=== PATIENT | female | born 1935 | race Caucasian/White ===

== ENCOUNTER 2019-02-15 07:36 | Observation (INO) | payer MEDICARE, BC ==
[2019-02-15] MEDS ORDERED: Sodium Chloride 0.9% 1,000 ML IV ONE (07:47)
[2019-02-15] MEDS ORDERED: Sodium Chloride 0.9% 10 ML Syringe FLUSH PRN (07:47)
--- NOTE | 2019-02-15 07:49 | EDM.PDOC ---
ED HPI GENERAL MEDICAL PROBLEM - General Chief Complaint: Genitourinary Problem Stated Complaint: UTI Time Seen by Provider: 02/15/19 07:45 Source of Information: Reports: Patient, Family, Old Records, RN, RN Notes Reviewed History Limitations: Reports: No Limitations - History of Present Illness INITIAL COMMENTS - FREE TEXT/NARRATIVE: Patient is brought to the ED at [facility] from the assisted living facility for concerns of a possible UTI. According to the patient's daughter, the patient "just has not been herself for the past couple of days." Patient apparently had significant urinary incontinence this morning. She has some lower pelvic pressure. No fevers or chills. Patient complains of a headache. No chest pain. Mild SOB. Has not been eating or drinking very well the past couple of days. No N/V/D. Patient has a significant history for UTI's in the past. Onset: Today Left Head Pain Score (Numeric/FACES): 4 - Related Data Allergies Allergy/AdvReac Type Severity Reaction Status Date / Time acetaminophen Allergy Other Verified 02/15/19 07:52 [From Darvocet-N] diltiazem [From Cardizem] Allergy Other Verified 02/15/19 07:52 lorazepam Allergy Other Verified 02/15/19 07:52 methyldopa Allergy Other Verified 02/15/19 07:53 propoxyphene Allergy Other Verified 02/15/19 07:52 [From Darvocet-N] Home Meds: Home Meds Acetaminophen [Acetaminophen ER] 650 mg PO Q6H PRN 02/15/19 [History] Albuterol/Ipratropium [DuoNeb 3.0-0.5 MG/3 ML] 3 ml IH Q4H PRN 02/15/19 [History ] Alum Hydrox/Mag Hydrox/Simeth [Maalox Advanced] 30 ml PO Q2H PRN 02/15/19 [ History] Apixaban [Eliquis] 2.5 mg PO BID 02/15/19 [History] Carvedilol [Coreg] 6.25 mg PO BID 02/15/19 [History] Dextran 70/Hypromellose [Artificial Tears] 1 each OP Q2H PRN 02/15/19 [History] Dextran 70/Hypromellose [Artificial Tears] 1 each OP QID 02/15/19 [History] Dextromethorphan/guaiFENesin [Robitussin DM] 10 ml PO Q4H PRN 02/15/19 [History] Digoxin 125 mcg PO DAILY 02/15/19 [History] Docusate Sodium [Colace] 100 mg PO BID 02/15/19 [History] Doxazosin [Doxazosin Mesylate] 2 mg PO DAILY 02/15/19 [History] Fluticasone Propionate [Flonase] 2 spray NS DAILY 02/15/19 [History] Furosemide 40 mg PO DAILY 02/15/19 [History] Magnesium Oxide [Magnesium] 400 mg PO DAILY 02/15/19 [History] Potassium Chloride 10 meq PO BID 02/15/19 [History] QUEtiapine [SEROquel] 25 mg PO BEDTIME PRN 02/15/19 [History] Simvastatin 10 mg PO BEDTIME 02/15/19 [History] SitaGLIPtin [Januvia] 100 mg PO DAILY 02/15/19 [History] ED ROS GENERAL - Review of Systems Review Of Systems: See Below Constitutional: Denies: Fever, Chills Respiratory: Reports: Shortness of Breath. Denies: Cough Cardiovascular: Denies: Chest Pain, Palpitations GI/Abdominal: Denies: Abdominal Pain, Nausea, Vomiting : Reports: Incontinence, Pain Skin: Reports: No Symptoms Neurological: Reports: Headache ED EXAM, RENAL/ - Physical Exam Exam: See Below Exam Limited By: No Limitations General Appearance: Alert, No Apparent Distress, Thin Respiratory/Chest: No Respiratory Distress, Lungs Clear, Decreased Breath Sounds Cardiovascular: Normal Peripheral Pulses, Regular Rate, Rhythm GI/Abdominal: Soft, Non-Tender, Abnormal Bowel Sounds (Hypoactive) (Female) Exam: Deferred Neurological: Alert, Oriented, Slow to Respond Skin Exam: Warm, Dry, Intact, Normal Color Course - Vital Signs Last Recorded V/S: Last Vital Signs Temp 37.0 C 02/15/19 07:40 Pulse 64 02/15/19 09:35 Resp 12 02/15/19 09:35 BP 139/58 L 02/15/19 09:35 Pulse Ox 97 02/15/19 07:40 - Orders/Labs/Meds Orders: Active Orders 24 hr Category Date Time Status Head wo Cont [CT] Stat Exams 02/15/19 09:04 Taken CULTURE URINE [RM] Stat Lab 02/15/19 09:04 Received Sodium Chloride 0.9% [Saline Flush] Med 02/15/19 07:47 Active 10 ml FLUSH ASDIRECTED PRN Peripheral IV Insertion Adult [OM.PC] Routine Oth 02/15/19 07:47 Ordered Medication Orders Sodium Chloride (Saline Flush) 10 ml FLUSH ASDIRECTED PRN PRN Reason: Keep Vein Open Labs: Laboratory Tests 02/15/19 02/15/19 02/15/19 Range/Units 08:04 08:04 09:04 WBC 8.6 (4.0-10.0) x10^3/uL RBC 3.21 L (4.00-5.50) x10^6/uL Hgb 8.3 L (12.0-16.0) g/dL Hct 28.7 L (33.0-47.0) % MCV 89.4 (78.0-93.0) fL MCH 25.9 L (26.0-32.0) pg MCHC 28.9 L (32.0-36.0) g/dL RDW Coeff of Brendan 17.5 H (10.0-15.0) % Plt Count 457 H (130-400) x10^3/uL Neut % (Auto) 72.0 (50.0-80.0) % Lymph % (Auto) 13.4 L (25.0-50.0) % [place] % (Auto) 10.7 (2.0-11.0) % Eos % (Auto) 3.8 (0.0-4.0) % Baso % (Auto) 0.1 L (0.2-1.2) % Sodium 141 (136-145) mmol/L Potassium 4.0 (3.5-5.1) mmol/L Chloride 103 (98-107) mmol/L Carbon Dioxide 28 (21-32) mmol/L Anion Gap 14.0 (10-20) mmol/L BUN 32 H (7-18) mg/dL Creatinine 1.0 (0.55-1.02) mg/dL Est Cr Clr Drug Dosing 37.48 mL/min Estimated GFR (MDRD) 53 Glucose 112 H (74-106) mg/dL Calcium 9.4 (8.5-10.1) mg/dL Corrected Calcium 10.60 H (8.5-10.1) mg/dL Total Bilirubin 0.5 (0.2-1.0) mg/dL AST 16 (15-37) U/L ALT 26 (14-59) U/L Alkaline Phosphatase 182 H (46-116) U/L Total Protein 7.0 (6.4-8.2) g/dL Albumin 2.5 L (3.4-5.0) g/dL Globulin 4.5 Albumin/Globulin Ratio 0.56 Urine Color Yellow (YELLOW) Urine Appearance Cloudy H (CLEAR) Urine pH 7.0 (5.0-8.0) Ur Specific [place] 1.010 Urine Protein Negative (NEGATIVE) mg/dL Urine Glucose (UA) Negative (NEGATIVE) mg/dL Urine Ketones Negative (NEGATIVE) mg/dL Urine Occult Blood Small H (NEGATIVE) Urine Nitrite Negative (NEGATIVE) Urine Bilirubin Negative (NEGATIVE) Urine Urobilinogen 0.2 (0.2) EU/dL Ur Leukocyte Esterase Moderate H (NEGATIVE) Urine RBC 0-5 (NOT SEEN) /HPF Urine WBC 30-40 H (NOT SEEN) /HPF Ur Squamous Epith Cells Moderate H (NEGATIVE) /HPF Urine Bacteria Many H (NEGATIVE) /HPF Urine Mucus Rare H (NEGATIVE) /LPF Meds: Medications Generic Name Dose Route Start Last Admin Trade Name Freq PRN Reason Stop Dose Admin Sodium Chloride 10 ml 02/15/19 07:47 Saline Flush FLUSH ASDIRECTED PRN Keep Vein Open Discontinued Medications Generic Name Dose Route Start Last Admin Trade Name Freq PRN Reason Stop Dose Admin Sodium Chloride 1,000 mls @ 999 mls/hr 02/15/19 07:47 02/15/19 08:07 Normal Saline IV 02/15/19 08:47 999 mls/hr ONETIME ONE Administration Morphine Sulfate 2 mg 02/15/19 09:04 02/15/19 09:21 Morphine IVPUSH 02/15/19 09:05 2 mg ONETIME ONE Administration - Radiology Interpretation Free Text/Narrative:: CXR: No pneumonia or edema CT Head: No plain evidence of acute intracranial process See scanned report in EMR CT Results Date: 02/15/19 CT Results Time: 09:34 Departure - Departure Time of Disposition: 10:11 Disposition: Refer to Observation Condition: Fair Clinical Impression: Weakness generalized, Physical deconditioning UTI (urinary tract infection) Qualifiers: Urinary tract infection type: acute cystitis Hematuria presence: with hematuria Qualified Code(s): N30.01 - Acute cystitis with hematuria - Discharge Information *PRESCRIPTION DRUG MONITORING PROGRAM REVIEWED*: Not Applicable *COPY OF PRESCRIPTION DRUG MONITORING REPORT IN PATIENT MARÍA: Not Applicable - Problem List Review Problem List Initiated/Reviewed/Updated: Yes - My Orders Last 24 Hours: My Active Orders 02/15/19 07:47 Sodium Chloride 0.9% [Saline Flush] 10 ml FLUSH ASDIRECTED PRN Peripheral IV Insertion Adult [OM.PC] Routine 02/15/19 09:04 Head wo Cont [CT] Stat CULTURE URINE [RM] Stat - Assessment/Plan Admission H&P: Please use this note as an admission H&P Last 24 Hours: My Active Orders 02/15/19 07:47 Sodium Chloride 0.9% [Saline Flush] 10 ml FLUSH ASDIRECTED PRN Peripheral IV Insertion Adult [OM.PC] Routine 02/15/19 09:04 Head wo Cont [CT] Stat CULTURE URINE [RM] Stat Assessment:: UTI Plan: Patient will be admitted to obs for UTI, weakness, and deconditioning. The family is considering admission to the [facility] after this stay. Will get group social worker involved for NH placement. Start IVF and a couple doses of IV abx therapy. Will consult PT/OT. Anticipate stay <48 hours. Patient will be a Code II.
--- NOTE | 2019-02-15 08:15 | CR ---
[id number] RAD/RAD Chest PA or AP 1V EXAM: SINGLE VIEW CHEST. INDICATION: SHORTNESS OF BREATH COMPARISON: NO PREVIOUS SIMILAR EXAM IS AVAILABLE FINDINGS: The lungs are clear. The cardiomediastinal contour is enlarged. There are surgical clips in the left axillary region. IMPRESSION: NO PNEUMONIA OR EDEMA. Obi Art MD 02/15/19 0813 Thank you for allowing us to participate in the care of your patient.
[2019-02-15] MEDS ORDERED: Morphine 2 MG/ML Syringe IVPUSH ONE (09:04)
[2019-02-15] MEDS ORDERED: Ondansetron 4 MG Tab.DIS PO PRN (10:35)
[2019-02-15] MEDS ORDERED: Polyethylene Glycol 3350 Powder 17 GM Packet PO PRN (10:35)
[2019-02-15] MEDS ORDERED: Dextran 70/Hypromellose/PF Ophth Soln 0.9 ML UD EYEBOTH PRN (10:43)
[2019-02-15] MEDS ORDERED: QUEtiapine 25 MG Tab PO PRN (10:43)
[2019-02-15] MEDS ORDERED: Aluminum Hydroxide/Magnesium Hydroxide/Simethicone Susp 30 ML Cup PO PRN (10:43)
[2019-02-15] MEDS ORDERED: guaiFENesin/Dextromethorphan 100-10 MG/5 ML Soln 10 ML Cup PO PRN (10:43)
[2019-02-15] MEDS ORDERED: Albuterol/Ipratropium 3.0-0.5 MG/3 ML Neb Soln INH PRN (10:43)
[2019-02-15] MEDS ORDERED: Fluticasone Propionate Nasal Spray 16 GM Bottle NASBOTH SCH (10:45)
[2019-02-15] MEDS: Sodium Chloride 0.9% 1,000 ML IV SCH (11:04)
[2019-02-15] MEDS: Docusate Sodium 100 MG Cap PO SCH ×2 (11:29→19:27)
[2019-02-15] MEDS: Apixaban 2.5 MG Tab PO SCH ×2 (11:29→19:28)
[2019-02-15] MEDS: cefTRIAXone 1 GM Vial IVPUSH SCH (11:29)
[2019-02-15] MEDS: Furosemide 40 MG Tab PO SCH (11:29)
[2019-02-15] MEDS: Potassium Chloride 10 MEQ Tab.ER PO SCH ×2 (11:30→19:27)
[2019-02-15] MEDS: Carvedilol 6.25 MG Tab PO SCH ×2 (11:31→19:28)
[2019-02-15] MEDS: Magnesium Oxide 400 MG Tab PO SCH (11:31)
[2019-02-15] MEDS: Digoxin 125 MCG Tab PO SCH (11:31)
[2019-02-15] MEDS: Dextran 70/Hypromellose/PF Ophth Soln 0.9 ML UD EYEBOTH SCH ×3 (11:32→19:28)
[2019-02-15] MEDS: Gabapentin 100 MG Cap PO SCH (12:12)
--- NOTE | 2019-02-15 14:20 | CT ---
[id number] CT/CT Head WO IV EXAM: CT Head WO IV CLINICAL DATA: LEFT-SIDED HEADACHE COMPARISON: CORRELATION IS MADE WITH THE EXAM OF DECEMBER 31, 2018. FINDINGS: There is no mass or mass effect. There is no hemorrhage or hydrocephalus. There are no extra-axial fluid collections. There are no sites of abnormal attenuation. IMPRESSION: NO PLAIN CT EVIDENCE OF ACUTE INTRACRANIAL PROCESS. Obi Art MD 02/16/19 0738 Thank you for allowing us to participate in the care of your patient.
[2019-02-15] MEDS: Acetaminophen 650 MG Tab.ER PO PRN ×2 (14:32→22:10)
[2019-02-15] MEDS ORDERED: SITAGLIPTIN 50 MG PO SCH (15:00)
[2019-02-15] MEDS: Simvastatin 10 MG Tab PO SCH (19:27)
[2019-02-15] MEDS ORDERED: REFRESH EYEBOTH PRN (23:45)
[2019-02-16] MEDS: Sodium Chloride 0.9% 1,000 ML IV SCH (00:30)
[2019-02-16] MEDS: Acetaminophen 650 MG Tab.ER PO PRN ×3 (04:15→19:43)
[2019-02-16 06:57] LABS: ANION GAP 12.2 mmol/L (10-20)
[2019-02-16] MEDS ORDERED: Sodium Chloride 0.9% 1,000 ML IV SCH (07:45)
[2019-02-16] MEDS: cefTRIAXone 1 GM Vial IVPUSH SCH (07:50)
[2019-02-16] MEDS: Docusate Sodium 100 MG Cap PO SCH ×2 (07:51→19:43)
[2019-02-16] MEDS: Potassium Chloride 10 MEQ Tab.ER PO SCH ×2 (07:51→19:42)
[2019-02-16] MEDS: Digoxin 125 MCG Tab PO SCH (07:51)
[2019-02-16] MEDS: Apixaban 2.5 MG Tab PO SCH ×2 (07:51→19:41)
[2019-02-16] MEDS: Furosemide 40 MG Tab PO SCH (07:51)
[2019-02-16] MEDS: Magnesium Oxide 400 MG Tab PO SCH (07:51)
[2019-02-16] MEDS: Carvedilol 6.25 MG Tab PO SCH ×2 (07:51→19:44)
[2019-02-16] MEDS: Gabapentin 100 MG Cap PO SCH (07:51)
--- NOTE | 2019-02-16 07:57 | PCM.PN ---
- General Info Date of Service: 02/16/19 Admission Dx/Problem (Free Text): Admitted for UTI resulting in weakness Functional Status: Reports: Pain Controlled, Tolerating Diet, Ambulating, Urinating. Denies: New Symptoms - Review of Systems General: Reports: No Symptoms HEENT: Reports: No Symptoms Pulmonary: Reports: No Symptoms Cardiovascular: Reports: No Symptoms Gastrointestinal: Reports: No Symptoms Genitourinary: Reports: Incontinence (has some stress/urge incontinence. better than yesterday) Musculoskeletal: Reports: No Symptoms Skin: Reports: Other (sore on buttocks) Neurological: Reports: No Symptoms Psychiatric: Reports: No Symptoms - Patient Data Vitals - Most Recent: Last Vital Signs Temp 35.9 C 02/16/19 05:44 Pulse 65 02/16/19 05:44 Resp 20 02/16/19 05:44 BP 146/53 H 02/16/19 05:44 Pulse Ox 96 02/16/19 05:44 Weight - Most Recent: 63.73 kg I&O - Last 24 Hours: Intake & Output 02/15/19 02/16/19 02/16/19 22:59 06:59 14:59 Intake Total 240 1603 Output Total 600 Balance -360 1603 Lab Results Last 24 Hours: Laboratory Results - last 24 hr 02/15/19 02/15/19 02/15/19 Range/Units 08:04 08:04 09:04 WBC 8.6 (4.0-10.0) x10^3/uL RBC 3.21 L (4.00-5.50) x10^6/uL Hgb 8.3 L (12.0-16.0) g/dL Hct 28.7 L (33.0-47.0) % MCV 89.4 (78.0-93.0) fL MCH 25.9 L (26.0-32.0) pg MCHC 28.9 L (32.0-36.0) g/dL RDW Coeff of Brendan 17.5 H (10.0-15.0) % Plt Count 457 H (130-400) x10^3/uL Neut % (Auto) 72.0 (50.0-80.0) % Lymph % (Auto) 13.4 L (25.0-50.0) % [place] % (Auto) 10.7 (2.0-11.0) % Eos % (Auto) 3.8 (0.0-4.0) % Baso % (Auto) 0.1 L (0.2-1.2) % Sodium 141 (136-145) mmol/L Potassium 4.0 (3.5-5.1) mmol/L Chloride 103 (98-107) mmol/L Carbon Dioxide 28 (21-32) mmol/L Anion Gap 14.0 (10-20) mmol/L BUN 32 H (7-18) mg/dL Creatinine 1.0 (0.55-1.02) mg/dL Est Cr Clr Drug Dosing 37.48 mL/min Estimated GFR (MDRD) 53 Glucose 112 H (74-106) mg/dL POC Glucose (74-106) mg/dL Calcium 9.4 (8.5-10.1) mg/dL Corrected Calcium 10.60 H (8.5-10.1) mg/dL Total Bilirubin 0.5 (0.2-1.0) mg/dL AST 16 (15-37) U/L ALT 26 (14-59) U/L Alkaline Phosphatase 182 H (46-116) U/L Total Protein 7.0 (6.4-8.2) g/dL Albumin 2.5 L (3.4-5.0) g/dL Globulin 4.5 Albumin/Globulin Ratio 0.56 Urine Color Yellow (YELLOW) Urine Appearance Cloudy H (CLEAR) Urine pH 7.0 (5.0-8.0) Ur Specific [place] 1.010 Urine Protein Negative (NEGATIVE) mg/dL Urine Glucose (UA) Negative (NEGATIVE) mg/dL Urine Ketones Negative (NEGATIVE) mg/dL Urine Occult Blood Small H (NEGATIVE) Urine Nitrite Negative (NEGATIVE) Urine Bilirubin Negative (NEGATIVE) Urine Urobilinogen 0.2 (0.2) EU/dL Ur Leukocyte Esterase Moderate H (NEGATIVE) Urine RBC 0-5 (NOT SEEN) /HPF Urine WBC 30-40 H (NOT SEEN) /HPF Ur Squamous Epith Cells Moderate H (NEGATIVE) /HPF Urine Bacteria Many H (NEGATIVE) /HPF Urine Mucus Rare H (NEGATIVE) /LPF 02/15/19 02/15/19 02/15/19 Range/Units 12:11 17:04 19:25 WBC (4.0-10.0) x10^3/uL RBC (4.00-5.50) x10^6/uL Hgb (12.0-16.0) g/dL Hct (33.0-47.0) % MCV (78.0-93.0) fL MCH (26.0-32.0) pg MCHC (32.0-36.0) g/dL RDW Coeff of Brendan (10.0-15.0) % Plt Count (130-400) x10^3/uL Neut % (Auto) (50.0-80.0) % Lymph % (Auto) (25.0-50.0) % [place] % (Auto) (2.0-11.0) % Eos % (Auto) (0.0-4.0) % Baso % (Auto) (0.2-1.2) % Sodium (136-145) mmol/L Potassium (3.5-5.1) mmol/L Chloride (98-107) mmol/L Carbon Dioxide (21-32) mmol/L Anion Gap (10-20) mmol/L BUN (7-18) mg/dL Creatinine (0.55-1.02) mg/dL Est Cr Clr Drug Dosing mL/min Estimated GFR (MDRD) Glucose (74-106) mg/dL POC Glucose 119 H 97 155 H (74-106) mg/dL Calcium (8.5-10.1) mg/dL Corrected Calcium (8.5-10.1) mg/dL Total Bilirubin (0.2-1.0) mg/dL AST (15-37) U/L ALT (14-59) U/L Alkaline Phosphatase (46-116) U/L Total Protein (6.4-8.2) g/dL Albumin (3.4-5.0) g/dL Globulin Albumin/Globulin Ratio Urine Color (YELLOW) Urine Appearance (CLEAR) Urine pH (5.0-8.0) Ur Specific [place] Urine Protein (NEGATIVE) mg/dL Urine Glucose (UA) (NEGATIVE) mg/dL Urine Ketones (NEGATIVE) mg/dL Urine Occult Blood (NEGATIVE) Urine Nitrite (NEGATIVE) Urine Bilirubin (NEGATIVE) Urine Urobilinogen (0.2) EU/dL Ur Leukocyte Esterase (NEGATIVE) Urine RBC (NOT SEEN) /HPF Urine WBC (NOT SEEN) /HPF Ur Squamous Epith Cells (NEGATIVE) /HPF Urine Bacteria (NEGATIVE) /HPF Urine Mucus (NEGATIVE) /LPF 02/16/19 02/16/19 Range/Units 06:19 06:19 WBC 7.3 (4.0-10.0) x10^3/uL RBC 2.88 L (4.00-5.50) x10^6/uL Hgb 7.5 L (12.0-16.0) g/dL Hct 26.0 L (33.0-47.0) % MCV 90.3 (78.0-93.0) fL MCH 26.0 (26.0-32.0) pg MCHC 28.8 L (32.0-36.0) g/dL RDW Coeff of Brendan 17.5 H (10.0-15.0) % Plt Count 448 H (130-400) x10^3/uL Neut % (Auto) 62.5 (50.0-80.0) % Lymph % (Auto) 21.8 L (25.0-50.0) % [place] % (Auto) 10.5 (2.0-11.0) % Eos % (Auto) 5.1 H (0.0-4.0) % Baso % (Auto) 0.1 L (0.2-1.2) % Sodium 146 H (136-145) mmol/L Potassium 4.2 (3.5-5.1) mmol/L Chloride 110 H (98-107) mmol/L Carbon Dioxide 28 (21-32) mmol/L Anion Gap 12.2 (10-20) mmol/L BUN 27 H (7-18) mg/dL Creatinine 0.9 (0.55-1.02) mg/dL Est Cr Clr Drug Dosing 41.65 mL/min Estimated GFR (MDRD) 60 Glucose 97 (74-106) mg/dL POC Glucose (74-106) mg/dL Calcium 8.7 (8.5-10.1) mg/dL Corrected Calcium (8.5-10.1) mg/dL Total Bilirubin (0.2-1.0) mg/dL AST (15-37) U/L ALT (14-59) U/L Alkaline Phosphatase (46-116) U/L Total Protein (6.4-8.2) g/dL Albumin (3.4-5.0) g/dL Globulin Albumin/Globulin Ratio Urine Color (YELLOW) Urine Appearance (CLEAR) Urine pH (5.0-8.0) Ur Specific [place] Urine Protein (NEGATIVE) mg/dL Urine Glucose (UA) (NEGATIVE) mg/dL Urine Ketones (NEGATIVE) mg/dL Urine Occult Blood (NEGATIVE) Urine Nitrite (NEGATIVE) Urine Bilirubin (NEGATIVE) Urine Urobilinogen (0.2) EU/dL Ur Leukocyte Esterase (NEGATIVE) Urine RBC (NOT SEEN) /HPF Urine WBC (NOT SEEN) /HPF Ur Squamous Epith Cells (NEGATIVE) /HPF Urine Bacteria (NEGATIVE) /HPF Urine Mucus (NEGATIVE) /LPF [place] Results Last 24 Hours: Microbiology 02/15/19 09:04 Urine Culture - Preliminary Urine, Catheterized NO GROWTH AFTER 1 DAY Med Orders - Current: Current Medications Acetaminophen (Tylenol Arthritis Pain) 650 mg PO Q6H PRN PRN Reason: Pain/Fever Last Admin: 02/16/19 04:15 Dose: 650 mg Al Hydroxide/Mg Hydroxide (Mag-Al Plus) 30 ml PO Q2H PRN PRN Reason: Indigestion Albuterol/Ipratropium (Duoneb 3.0-0.5 Mg/3 Ml) 3 ml INH Q4H PRN PRN Reason: Wheezing Apixaban (Eliquis) 2.5 mg PO BID [facility] Last Admin: 02/15/19 19:28 Dose: 2.5 mg Carvedilol (Coreg) 6.25 mg PO BID [facility] Last Admin: 02/15/19 19:28 Dose: 6.25 mg Ceftriaxone Sodium (Rocephin) 1 gm IVPUSH DAILY [facility] Last Admin: 02/15/19 11:29 Dose: 1 gm Digoxin (Lanoxin) 125 mcg PO DAILY [facility] Last Admin: 02/15/19 11:31 Dose: 125 mcg Docusate Sodium (Colace) 100 mg PO BID [facility] Last Admin: 02/15/19 19:27 Dose: 100 mg Doxazosin Mesylate (Cardura) 2 mg PO DAILY [facility] Last Admin: 02/15/19 11:31 Dose: 2 mg Fluticasone Propionate (Flonase) 0 gm VIKA DAILY [facility] Furosemide (Lasix) 40 mg PO DAILY [facility] Last Admin: 02/15/19 11:29 Dose: 40 mg Gabapentin (Neurontin) 100 mg PO DAILY [facility] Last Admin: 02/15/19 12:12 Dose: 100 mg Guaifenesin/Dextromethorphan (Robitussin Dm) 10 ml PO Q4H PRN PRN Reason: Cough Sodium Chloride (Normal Saline) 1,000 mls @ 25 mls/hr IV ASDIRECTED [facility] Magnesium Oxide (Magnesium Oxide) 400 mg PO DAILY [facility] Last Admin: 02/15/19 11:31 Dose: 400 mg Ondansetron HCl (Zofran Odt) 4 mg PO Q6H PRN PRN Reason: nausea, able to take PO Patient's Own Medication 1 Each Refresh Ophth Soln 0 each EYEBOTH Q2H PRN PRN Reason: Dry Eyes Patient's Own Medication 1 Each Refresh Ophth Soln 0 each EYEBOTH QID [facility] Polyethylene Glycol (Miralax) 17 gm PO DAILY PRN PRN Reason: Constipation Potassium Chloride (Klor-Con 10) 10 meq PO BID [facility] Last Admin: 02/15/19 19:27 Dose: 10 meq Quetiapine Fumarate (Seroquel) 25 mg PO BEDTIME PRN PRN Reason: Sleep Simvastatin (Zocor) 10 mg PO BEDTIME [facility] Last Admin: 02/15/19 19:27 Dose: 10 mg Sitagliptin Phosphate (Januvia) 50 mg PO DAILY [facility] Sodium Chloride (Saline Flush) 10 ml FLUSH ASDIRECTED PRN PRN Reason: Keep Vein Open Discontinued Medications Artificial Tears (Tears Naturale Free) 1 each EYEBOTH Q2H PRN PRN Reason: Dry Eyes Artificial Tears (Tears Naturale Free) 1 each EYEBOTH QID [facility] Last Admin: 02/15/19 19:28 Dose: 1 each Sodium Chloride (Normal Saline) 1,000 mls @ 999 mls/hr IV ONETIME ONE Stop: 02/15/19 08:47 Last Admin: 02/15/19 08:07 Dose: 999 mls/hr Sodium Chloride (Normal Saline) 1,000 mls @ 75 mls/hr IV ASDIRECTED [facility] Last Admin: 02/16/19 00:30 Dose: 75 mls/hr Morphine Sulfate (Morphine) 2 mg IVPUSH ONETIME ONE Stop: 02/15/19 09:05 Last Admin: 03/26/19 09:21 Dose: 2 mg Sitagliptin Phosphate (Januvia) 50 mg PO DAILY [facility]OXI Last Admin: 02/15/19 17:22 Dose: Not Given - Exam General: Alert, Oriented, Cooperative, No Acute Distress HEENT: Pupils Equal, Pupils Reactive, EOMI, Mucous Membr. Moist/[place] Neck: Supple Lungs: Clear to Auscultation, Normal Respiratory Effort Cardiovascular: Regular Rate, Regular Rhythm GI/Abdominal Exam: Normal Bowel Sounds, Soft, Non-Tender, No Organomegaly Back Exam: Normal Inspection, Full Range of Motion Extremities: Normal Inspection, Normal Range of Motion, Non-Tender, No Pedal Edema, Normal Capillary Refill Skin: Other (buttock ulcer, barrier cream applied) Neurological: No New Focal Deficit Psy/Mental Status: Alert, Normal Affect, Normal Mood - Problem List & Annotations (1) UTI (urinary tract infection) SNOMED Code(s): 02809997 Code(s): N39.0 - URINARY TRACT INFECTION, SITE NOT SPECIFIED Status: Acute Priority: Medium Current Visit: Yes Qualifiers: Urinary tract infection type: acute cystitis Hematuria presence: with hematuria Qualified Code(s): N30.01 - Acute cystitis with hematuria (2) Weakness generalized SNOMED Code(s): 20885631 Code(s): R53.1 - WEAKNESS Status: Acute Priority: Medium Current Visit : Yes - Problem List Review Problem List Initiated/Reviewed/Updated: Yes - My Orders Last 24 Hours: My Active Orders 02/16/19 07:45 Sodium Chloride 0.9% [Normal Saline] 1,000 ml IV ASDIRECTED 02/17/19 05:11 BMP [BASIC METABOLIC PANEL,BMP] [CHEM] AM URINALYSIS W/MICROSCOPIC [UA W/MICROSCOPIC] [URIN] AM - Assessment Assessment:: UTI Weakness - Plan Plan:: Plan Continue IV antibiotics, hydration. Will continue to monitor oral intake. Physical therapy to work with patient. health services coordinator to review charting and together will develop appropriate plan for transfer to [facility] for additional swingbed stay and admittance to correction. Will continue to monitor metabolic panel. Sodium slightly elevated today. Will decrease IV fluids to tko rate of 25 mL/hour. Blood sugars monitored with accuchecks. May need address increasing her Januvia back to baseline admitting level if sugars increase. Will also monitor kidney function and consult with pharmacy as well before any increase back to home level.
[2019-02-16] MEDS: SITAGLIPTIN 100 MG PO SCH (08:47)
[2019-02-16] MEDS: Fluticasone Propionate Nasal Spray 16 GM Bottle**OWN MED NAS SCH (08:47)
[2019-02-16] MEDS: REFRESH EYEBOTH SCH ×4 (08:47→19:45)
[2019-02-16] MEDS: Simvastatin 10 MG Tab PO SCH (19:43)
[2019-02-17] MEDS: Acetaminophen 650 MG Tab.ER PO PRN ×2 (03:13→10:23)
[2019-02-17 07:22] LABS: ANION GAP 12.9 mmol/L (10-20)
[2019-02-17] MEDS: Digoxin 125 MCG Tab PO SCH (07:34)
[2019-02-17] MEDS: Gabapentin 100 MG Cap PO SCH (07:34)
[2019-02-17] MEDS: Potassium Chloride 10 MEQ Tab.ER PO SCH (07:34)
[2019-02-17] MEDS: Furosemide 40 MG Tab PO SCH (07:35)
[2019-02-17] MEDS: Apixaban 2.5 MG Tab PO SCH (07:35)
[2019-02-17] MEDS: Docusate Sodium 100 MG Cap PO SCH (07:35)
[2019-02-17] MEDS: Magnesium Oxide 400 MG Tab PO SCH (07:35)
[2019-02-17] MEDS: Carvedilol 6.25 MG Tab PO SCH (07:35)
[2019-02-17] MEDS: SITAGLIPTIN 100 MG PO SCH (07:37)
[2019-02-17] MEDS: REFRESH EYEBOTH SCH (07:37)
[2019-02-17] MEDS: Fluticasone Propionate Nasal Spray 16 GM Bottle**OWN MED NAS SCH (07:37)
[2019-02-17] MEDS: cefTRIAXone 1 GM Vial IVPUSH SCH (07:42)
--- NOTE | 2019-02-17 07:48 | PCM.DCSUM1 ---
Discharge Summary - Hospital Course HPI Initial Comments: Patient was brought to the ED at [facility] 2 days ago from the assisted living facility for concerns of a possible UTI. According to the patient's daughter, the patient "just has not been herself for the past couple of days." Patient apparently had significant urinary incontinence this morning. She has some lower pelvic pressure. No fevers or chills. Patient complains of a headache. No chest pain. Mild SOB. Has not been eating or drinking very well the past couple of days. No N/V/D. Patient has a significant history for UTI's in the past. Patient was admitted to observation for IV abx therapy and fluids. Patient needed a PT eval for placement. PT felt patient would need therapy services, therefore, patient will be discharge to [facility] today. Diagnosis: Stroke: No Modified Jassi Scale: No Symptoms at All Modified Trinity Scale Score: 0 - Discharge Data Discharge Date: 02/17/19 Discharge Disposition: DC/Tfer to SNF 03 Condition: Fair - Patient Summary/Data Operative Procedure(s) Performed: None Consults: Consultations 02/15/19 10:35 Consult to Case Management/Transformer Builder [CONS] Routine OT Evaluation and Treatment [CONS] Routine PT Evaluation and Treatment [CONS] Routine Labs Pending at D/C: None Recommended Follow-up Testing/Procedures: None Planned Operative Procedure(s) after DC: None Hospital Course: Patient remained hemodynamically stable. No fevers or chills. Gabapentin was added for left shoulder pain. She also started using an Aqua K pad on the left shoulder as well. No issues with urination or BM's. Patient was able to participate with PT services. Weights stable. Labs acceptable for discharge. No issues with diet, tolerated well. Able to feed self. Patient did not have any chest pain or SOB. Abdomen benign. Hemoglobin was low yesterday but this is felt to be due to IVF hydration. - Patient Instructions Diet: Diabetic Diet Activity: As Tolerated Driving: Do Not Drive Showering/Bathing: May Shower Notify Provider of: Fever, Increased Pain, Nausea and/or Vomiting - Discharge Plan *PRESCRIPTION DRUG MONITORING PROGRAM REVIEWED*: Not Applicable *COPY OF PRESCRIPTION DRUG MONITORING REPORT IN PATIENT MARÍA: Not Applicable Prescriptions/Med Rec: Gabapentin [Neurontin] 100 mg PO DAILY #30 capsule Nitrofurantoin Monohyd/M-Cryst [Macrobid 100 mg Capsule] 100 mg PO BID 7 Days # 14 capsule SitaGLIPtin [Januvia] 50 mg PO DAILY #30 tablet Home Medications: Home Meds Acetaminophen [Acetaminophen ER] 650 mg PO Q6H PRN 02/15/19 [History] Albuterol/Ipratropium [DuoNeb 3.0-0.5 MG/3 ML] 3 ml IH Q4H PRN 02/15/19 [History ] Alum Hydrox/Mag Hydrox/Simeth [Maalox Advanced] 30 ml PO Q2H PRN 02/15/19 [ History] Apixaban [Eliquis] 2.5 mg PO BID 02/15/19 [History] Carvedilol [Coreg] 6.25 mg PO BID 02/15/19 [History] Dextran 70/Hypromellose [Artificial Tears] 1 each OP Q2H PRN 02/15/19 [History] Dextran 70/Hypromellose [Artificial Tears] 1 each OP QID 02/15/19 [History] Dextromethorphan/guaiFENesin [Robitussin DM] 10 ml PO Q4H PRN 02/15/19 [History] Digoxin 125 mcg PO DAILY 02/15/19 [History] Docusate Sodium [Colace] 100 mg PO BID 02/15/19 [History] Doxazosin [Cardura] 2 mg PO DAILY 02/15/19 [History] Fluticasone Propionate [Flonase] 2 spray NS DAILY 02/15/19 [History] Furosemide 40 mg PO DAILY 02/15/19 [History] Magnesium Oxide [Magnesium] 400 mg PO DAILY 02/15/19 [History] Potassium Chloride 10 meq PO BID 02/15/19 [History] QUEtiapine [SEROquel] 25 mg PO BEDTIME PRN 02/15/19 [History] Simvastatin 10 mg PO BEDTIME 02/15/19 [History] Gabapentin [Neurontin] 100 mg PO DAILY #30 capsule 02/17/19 [Rx] Nitrofurantoin Monohyd/M-Cryst [Macrobid 100 mg Capsule] 100 mg PO BID 7 Days # 14 capsule 02/17/19 [Rx] SitaGLIPtin [Januvia] 50 mg PO DAILY #30 tablet 02/17/19 [Rx] Oxygen Therapy Mode: Room Air Patient Handouts: Urinary Tract Infection, Adult Referrals: Jennie Millan, [employer] [Primary Care Provider] - 02/24/19 (FOLLOW UP WITH LESLIE MILLAN IN CLINIC IN ONE WEEK) - Discharge Summary/Plan Comment DC Time >30 min.: No Discharge Summary/Plan Comment: Patient will be discharge to [facility] swing bed today. Continue with Gabapentin 100 mg daily. Decreased Januvia to 50 mg daily due to renal function. Start Macrobid for UTI after discharge. No changes with any other medications. Patient needs to follow up with her PCP in one week for a post hospital discharge. - Patient Data Vitals - Most Recent: Last Vital Signs Temp 37.1 C 02/17/19 05:57 Pulse 85 02/17/19 07:35 Resp 20 02/17/19 05:57 BP 140/70 02/17/19 07:35 Pulse Ox 97 02/17/19 05:57 Weight - Most Recent: 61.689 kg I&O - Last 24 hours: Intake & Output 02/16/19 02/17/19 02/17/19 22:59 06:59 14:59 Intake Total 652 293 Output Total 1000 Balance -348 293 Lab Results - Last 24 hrs: Laboratory Results - last 24 hr 02/17/19 02/17/19 Range/Units 05:57 06:34 Sodium 143 (136-145) mmol/L Potassium 3.9 (3.5-5.1) mmol/L Chloride 106 (98-107) mmol/L Carbon Dioxide 28 (21-32) mmol/L Anion Gap 12.9 (10-20) mmol/L BUN 27 H (7-18) mg/dL Creatinine 1.1 H (0.55-1.02) mg/dL Est Cr Clr Drug Dosing 38.30 mL/min Estimated GFR (MDRD) 47 Glucose 112 H (74-106) mg/dL POC Glucose 107 H (74-106) mg/dL Calcium 9.2 (8.5-10.1) mg/dL JENNI Results - Last 24 hrs: Microbiology 02/15/19 09:04 Urine Culture - Preliminary Urine, Catheterized NO GROWTH AFTER 1 DAY Med Orders - Current: Current Medications Acetaminophen (Tylenol Arthritis Pain) 650 mg PO Q6H PRN PRN Reason: Pain/Fever Last Admin: 02/17/19 03:13 Dose: 650 mg Al Hydroxide/Mg Hydroxide (Mag-Al Plus) 30 ml PO Q2H PRN PRN Reason: Indigestion Albuterol/Ipratropium (Duoneb 3.0-0.5 Mg/3 Ml) 3 ml INH Q4H PRN PRN Reason: Wheezing Apixaban (Eliquis) 2.5 mg PO BID [facility] Last Admin: 02/17/19 07:35 Dose: 2.5 mg Carvedilol (Coreg) 6.25 mg PO BID [facility] Last Admin: 02/17/19 07:35 Dose: 6.25 mg Ceftriaxone Sodium (Rocephin) 1 gm IVPUSH DAILY [facility] Last Admin: 02/17/19 07:42 Dose: 1 gm Digoxin (Lanoxin) 125 mcg PO DAILY [facility] Last Admin: 02/17/19 07:34 Dose: 125 mcg Docusate Sodium (Colace) 100 mg PO BID [facility] Last Admin: 02/17/19 07:35 Dose: 100 mg Doxazosin Mesylate (Cardura) 2 mg PO DAILY [facility] Last Admin: 02/17/19 07:35 Dose: 2 mg Fluticasone Propionate (Flonase) 0 gm VIKA DAILY [facility] Last Admin: 02/17/19 07:37 Dose: 1 spray Furosemide (Lasix) 40 mg PO DAILY [facility] Last Admin: 02/17/19 07:35 Dose: 40 mg Gabapentin (Neurontin) 100 mg PO DAILY [facility] Last Admin: 02/17/19 07:34 Dose: 100 mg Guaifenesin/Dextromethorphan (Robitussin Dm) 10 ml PO Q4H PRN PRN Reason: Cough Sodium Chloride (Normal Saline) 1,000 mls @ 25 mls/hr IV ASDIRECTED [facility] Last Admin: 02/17/19 00:19 Dose: 25 mls/hr Magnesium Oxide (Magnesium Oxide) 400 mg PO DAILY [facility] Last Admin: 02/17/19 07:35 Dose: 400 mg Ondansetron HCl (Zofran Odt) 4 mg PO Q6H PRN PRN Reason: nausea, able to take PO Patient's Own Medication 1 Each Refresh Ophth Soln 0 each EYEBOTH Q2H PRN PRN Reason: Dry Eyes Patient's Own Medication 1 Each Refresh Ophth Soln 0 each EYEBOTH QID [facility] Last Admin: 02/17/19 07:37 Dose: 1 each Polyethylene Glycol (Miralax) 17 gm PO DAILY PRN PRN Reason: Constipation Potassium Chloride (Klor-Con 10) 10 meq PO BID [facility] Last Admin: 02/17/19 07:34 Dose: 10 meq Quetiapine Fumarate (Seroquel) 25 mg PO BEDTIME PRN PRN Reason: Sleep Simvastatin (Zocor) 10 mg PO BEDTIME [facility] Last Admin: 02/16/19 19:43 Dose: 10 mg Sitagliptin Phosphate (Januvia) 50 mg PO DAILY [facility] Last Admin: 02/17/19 07:37 Dose: 50 mg Sodium Chloride (Saline Flush) 10 ml FLUSH ASDIRECTED PRN PRN Reason: Keep Vein Open Discontinued Medications Artificial Tears (Tears Naturale Free) 1 each EYEBOTH Q2H PRN PRN Reason: Dry Eyes Artificial Tears (Tears Naturale Free) 1 each EYEBOTH QID [facility] Last Admin: 02/15/19 19:28 Dose: 1 each Sodium Chloride (Normal Saline) 1,000 mls @ 999 mls/hr IV ONETIME ONE Stop: 02/15/19 08:47 Last Admin: 02/15/19 08:07 Dose: 999 mls/hr Sodium Chloride (Normal Saline) 1,000 mls @ 75 mls/hr IV ASDIRECTED [facility] Last Admin: 02/16/19 00:30 Dose: 75 mls/hr Morphine Sulfate (Morphine) 2 mg IVPUSH ONETIME ONE Stop: 02/15/19 09:05 Last Admin: 02/15/19 09:21 Dose: 2 mg Sitagliptin Phosphate (Januvia) 50 mg PO DAILY [facility] Last Admin: 02/15/19 17:22 Dose: Not Given
== END 2019-02-17 13:50 ==
LOC: VM.ED 07:36 → UNDOADMOB 10:12 → VM.MS 10:12
PROVIDERS: ADMIT Nurse Practitioner Family; ATTEND Nurse Practitioner Family
DX: N30.01 Acute cystitis with hematuria (principal); R53.1 Weakness; Z88.6 Allergy status to analgesic agent
CPT/HCPCS: 36415; 51798; 70450; 71045; 80048; 80053; 81001; 82962; 85025; 87086; 96361; 96374; 96375; 96376; 97110; 97162; 97165; 97530; 97535; 99285; A9270; G0378; J0696; J2270; J7030